=== PATIENT | female | born 1980 | race Caucasian/White ===

== ENCOUNTER 2020-02-06 17:52 | Inpatient (IN) | payer OTHER, MEDICAID ==
[~2020-02-06] VITALS: Ht 165.1 cm; Wt 64.3 kg
[2020-02-06] MEDS ORDERED: ondansetron/PF 4mg/2ml inj IV ONE ×2 (18:25→19:00)
[2020-02-06] MEDS ORDERED: normal saline 1000ML IV soln IVB ONE (18:25)
[2020-02-06 18:29] LABS: BASOPHILS # (AUTO) 0.1 X10'3 (0-0.2); BASOPHILS % (AUTO) 1.3 % (0-1); EOSINOPHILS % (AUTO) 0 % (0-6); HEMATOCRIT 38.8 % (35.0-45.0); HEMOGLOBIN 13.4 g/dl (12.0-16.0); LYMPHOCYTES # (AUTO) 0.2 X10'3 (1.1-4.8); LYMPHOCYTES % (AUTO) 2.7 % (21-51); MEAN CORPUSCULAR HEMOGLOBIN 31.2 PG (27.0-31.0); MEAN CORPUSCULAR HGB CONC 34.6 g/dL (33.0-36.5); MEAN CORPUSCULAR VOLUME 90.1 FL (78-98); MEAN PLATELET VOLUME 8.1 FL (7.4-10.4); MONOCYTES # (AUTO) 0.8 X10'3 (0-0.9); MONOCYTES % (AUTO) 8.7 % (2-12); NEUTROPHILS # (AUTO) 7.8 X10'3 (1.8-7.7); NEUTROPHILS % (AUTO) 87.3 % (42-75); PLATELET COUNT 314 X10'3 (140-440); RED BLOOD COUNT 4.31 X10'6 (4.20-5.60); RED CELL DISTRIBUTION WIDTH 15.1 % (11.5-14.5)
[2020-02-06] MEDS: morphine 4 MG/ML inj SYRINge IV PRN ×2 (18:39→20:58)
[2020-02-06 18:41] LABS: ALANINE AMINOTRANSFERASE 32 U/L (12-78); ALBUMIN 3.8 G/DL (3.4-5.0); ALBUMIN/GLOBULIN RATIO 1.1 (1.1-1.5); ALKALINE PHOSPHATASE 35 IU/L (46-116); ANION GAP 8 (8-16); ASPARTATE AMINO TRANSFERASE 42 U/L (10-37); BILIRUBIN,TOTAL 0.6 MG/DL (0.1-1.0); BLOOD UREA NITROGEN 7 MG/DL (7-18); BUN/CREATININE RATIO 8.8 (6.6-38.0); CHLORIDE 103 MMOL/L (99-107); GLUCOSE 129 MG/DL (70-104); LIPASE 91 U/L (73-393); POTASSIUM 3.4 MMOL/L (3.5-5.1); SODIUM 139 MMOL/L (135-145); TOTAL CARBON DIOXIDE 27.6 MMOL/L (24-32); TOTAL PROTEIN 7.4 G/DL (6.4-8.2); eGFR 79 ML/MIN
[2020-02-06 18:51] LABS: CLARITY,URINE CLEAR (Clear); COLOR,URINE YELLOW (Yellow); GLUCOSE, URINE NEGATIVE (Neg); KETONES,URINE 15 mg/dl (Neg); LEUKOCYTE ESTERASE ,URINE NEGATIVE (Neg); NITRITES, URINE NEGATIVE (Neg); OCCULT BLOOD,URINE TRACE-INTACT (Neg); PROTEIN,URINE 100 mg/dl (Neg); URINE HCG NEGATIVE (NEG); UROBILINOGEN,URINE 0.2 E.U/dL (0.2-1.0)
[2020-02-06 18:57] LABS: UA COLLECTION TYPE CLN CATCH MIDSTREAM
[2020-02-06] MEDS ORDERED: pantoprazole 40 MG vial IV ONE (19:00)
[2020-02-06] MEDS ORDERED: famotidine/PF 10 mg/ml inj IV ONE (19:00)
--- NOTE | 2020-02-06 19:03 | NUR ---
US TECH AT BEDSIDE.
[2020-02-06 19:05] LABS: BACTERIA,URINE NONE SEEN /HPF (Neg); MUCUS STRANDS MANY /LPF (Neg); RBC,URINE NONE SEEN /HPF (0-2); SQUAMOUS EPITHELIAL CELL,UR MODERATE /LPF (FEW); WBC,URINE 20-30 /HPF (0-4)
[2020-02-06] MEDS ORDERED: piperacillin/tazo 3.375gm/50ml 50 ML IV ONE (19:10)
--- NOTE | 2020-02-06 19:20 | NUR ---
PER DR BROWN NO BLOOD CULTURE ORDER NEEDED.
[2020-02-06] MEDS ORDERED: WARF3TAB56 PO (19:43)
[2020-02-06] MEDS ORDERED: PRE5T PO (19:43)
[2020-02-06] MEDS ORDERED: WARF1TAB83 PO (19:43)
[2020-02-06] MEDS ORDERED: HYDR200T84 PO (19:43)
[2020-02-06] MEDS ORDERED: ondansetron/PF 4mg/2ml inj IV PRN (20:40)
[2020-02-06] MEDS ORDERED: potassium CL 10mEq/100ml bag 100 ML IV PRN (20:40)
[2020-02-06] MEDS ORDERED: heparin, porcine 5000 units/ml vial SQ ONE (20:40)
[2020-02-06] MEDS ORDERED: morphine 2 MG/ML inj. syringe IV PRN (20:40)
[2020-02-06] MEDS: normal saline 1000ml 1,000 ML IV SCH (20:58)
--- NOTE | 2020-02-06 22:10 | NUR ---
Patient transferred independently to bed. VSS. Patient c/o 05/08 pain, received morphine in ER.
[2020-02-06] MEDS: morphine 2 MG/ML inj. syringe IV PRN (23:00)
[2020-02-07] VITALS: BP 115/58
[2020-02-07] MEDS: piperacillin/tazo 3.375gm/50ml 50 ML IV SCH ×4 (00:27→23:38)
[2020-02-07 05:00] LABS: BASOPHILS % (AUTO) 0.5 % (0-1); EOSINOPHILS % (AUTO) 0.4 % (0-6); HEMATOCRIT 30.8 % (35.0-45.0); HEMOGLOBIN 10.8 g/dl (12.0-16.0); LYMPHOCYTES # (AUTO) 0.5 X10'3 (1.1-4.8); LYMPHOCYTES % (AUTO) 12.2 % (21-51); MEAN CORPUSCULAR HEMOGLOBIN 31.7 PG (27.0-31.0); MEAN CORPUSCULAR HGB CONC 34.9 g/dL (33.0-36.5); MEAN CORPUSCULAR VOLUME 90.8 FL (78-98); MEAN PLATELET VOLUME 8.6 FL (7.4-10.4); MONOCYTES # (AUTO) 0.5 X10'3 (0-0.9); MONOCYTES % (AUTO) 12.1 % (2-12); NEUTROPHILS # (AUTO) 2.9 X10'3 (1.8-7.7); NEUTROPHILS % (AUTO) 74.8 % (42-75); PLATELET COUNT 222 X10'3 (140-440); RED CELL DISTRIBUTION WIDTH 15.4 % (11.5-14.5); WHITE BLOOD COUNT 3.9 X10'3 (4.5-11.0)
[2020-02-07 05:21] LABS: ALANINE AMINOTRANSFERASE 127 U/L (12-78); ALBUMIN 2.7 G/DL (3.4-5.0); ALKALINE PHOSPHATASE 34 IU/L (46-116); ANION GAP 6 (8-16); ASPARTATE AMINO TRANSFERASE 163 U/L (10-37); BILIRUBIN,TOTAL 1.3 MG/DL (0.1-1.0); BLOOD UREA NITROGEN 7 MG/DL (7-18); BUN/CREATININE RATIO 9.3 (6.6-38.0); CALCIUM 7.9 MG/DL (8.5-10.1); CHLORIDE 110 MMOL/L (99-107); CREATININE 0.75 MG/DL (0.40-0.90); GLUCOSE 92 MG/DL (70-104); POTASSIUM 3.1 MMOL/L (3.5-5.1); SODIUM 143 MMOL/L (135-145); TOTAL PROTEIN 5.5 G/DL (6.4-8.2); eGFR 85 ML/MIN
[2020-02-07] MEDS: potassium CL 10mEq/100ml bag 100 ML IV PRN ×4 (06:03→13:11)
--- NOTE | 2020-02-07 06:44 | NUR ---
Problems reprioritized. Patient report given, questions answered & plan of care reviewed with Zeenat RN.
--- NOTE | 2020-02-07 06:45 | NUR ---
Patient in room [facility]. I have received report from SOMMER Del Real and had the opportunity to ask questions and assume patient care.
[2020-02-07 07:50] VITALS: BP 109/66
[2020-02-07] MEDS: K and/or MAG REPLACEMENT MC SCH ×2 (08:00→19:48)
[2020-02-07] MEDS ORDERED: sincalide inj 1.3 MCG in normal saline 50ml IV soln 50 ML IV ONE (09:00)
--- NOTE | 2020-02-07 09:30 | NUR ---
Per Dr. Ferreira's orders, cancel HIDA scan and keep patient NPO this morning. Dr. Fagan to consult today.
[2020-02-07] MEDS: normal saline 1000ml 1,000 ML IV SCH ×2 (09:41→19:46)
[2020-02-07] MEDS: morphine 2 MG/ML inj. syringe IV PRN ×4 (09:49→23:39)
[2020-02-07] MEDS ORDERED: heparin 10,000 units/1 ML INJ IV PRN (10:05)
[2020-02-07] MEDS: heparin 25,000 UNIT/250ml bag 250 ML IV SCH ×2 (11:46→19:45)
[2020-02-07 12:06] VITALS: BP 101/56
--- NOTE | 2020-02-07 12:12 | NUR ---
Per Dr. Ferreira's order, starting Heparin drop per DVT/PE protocol, and no bolus to be given per MD order. SOMMER Benítez and SOMMER Fortune witnessed the start of the infusion pump and witnessed start of Heparin on eMAR.
[2020-02-07] MEDS ORDERED: acetaminophen 325mg tablet PO PRN (13:20)
--- NOTE | 2020-02-07 16:02 | NUR ---
Malnutrition consult: Pt seen at bedside reports UBW 135-140 lbs with 10 lb wt loss over the last month secondary to changing her dietary habits to be more healthy. Current scaled wt is 141 lb which is 100% reported UBW. Pt states she has had poor PO intake over the last two days secondary to abdominal pain and emesis. Pt currently NPO however pt states she is currently starving and with no nausea at this time. Pt with no decrease in muscle strength, edema, or visible fat/muscle wasting. Pt currently does not meet criteria for malnutrition. Pt denies food allergies or difficulty chewing/swallowing. RD contact information provided. Will continue to follow. Addendum: 02/07/20 at [address] Amended: Links added.
--- NOTE | 2020-02-07 18:36 | NUR ---
Problems reprioritized. Patient report given, questions answered & plan of care reviewed with Yu Corbin RN.
--- NOTE | 2020-02-07 19:48 | NUR ---
Pt was off heparin drip for one hour due to MRCP. Called tala to see if pt should be bolused as Rusu had declined that earlier. Kr. Pink states no bolus dose. Increased heparin to 1300 units per hour per protocol. Asked MD for diet order, patient asking to eat, no procedure schedule. MD states no diet at this time. MRCP recommendations not yet back.
[2020-02-07 20:00] VITALS: BP 105/58
[2020-02-08] VITALS (19 sets, daily range): BP systolic 97–144; BP diastolic 56–81
[2020-02-08] MEDS: morphine 2 MG/ML inj. syringe IV PRN ×3 (02:22→12:22)
[2020-02-08] MEDS: normal saline 1000ml 1,000 ML IV SCH (02:22)
[2020-02-08 02:44] LABS: BASOPHILS % (AUTO) 0.7 % (0-1); EOSINOPHILS % (AUTO) 1.5 % (0-6); HEMATOCRIT 29.4 % (35.0-45.0); HEMOGLOBIN 10.3 g/dl (12.0-16.0); LYMPHOCYTES # (AUTO) 0.4 X10'3 (1.1-4.8); LYMPHOCYTES % (AUTO) 13.5 % (21-51); MEAN CORPUSCULAR HEMOGLOBIN 32.5 PG (27.0-31.0); MEAN CORPUSCULAR HGB CONC 35.2 g/dL (33.0-36.5); MEAN CORPUSCULAR VOLUME 92.4 FL (78-98); MEAN PLATELET VOLUME 8.3 FL (7.4-10.4); MONOCYTES # (AUTO) 0.4 X10'3 (0-0.9); MONOCYTES % (AUTO) 11.1 % (2-12); NEUTROPHILS # (AUTO) 2.3 X10'3 (1.8-7.7); NEUTROPHILS % (AUTO) 73.2 % (42-75); PLATELET COUNT 182 X10'3 (140-440); RED BLOOD COUNT 3.18 X10'6 (4.20-5.60); WHITE BLOOD COUNT 3.2 X10'3 (4.5-11.0)
[2020-02-08 02:56] LABS: ALANINE AMINOTRANSFERASE 149 U/L (12-78); ALBUMIN 2.5 G/DL (3.4-5.0); ALBUMIN/GLOBULIN RATIO 0.9 (1.1-1.5); ALKALINE PHOSPHATASE 78 IU/L (46-116); ANION GAP 9 (8-16); ASPARTATE AMINO TRANSFERASE 128 U/L (10-37); BLOOD UREA NITROGEN 13 MG/DL (7-18); BUN/CREATININE RATIO 15.9 (6.6-38.0); CALCIUM 7.5 MG/DL (8.5-10.1); CHLORIDE 111 MMOL/L (99-107); CREATININE 0.82 MG/DL (0.40-0.90); GLUCOSE 65 MG/DL (70-104); POTASSIUM 3.7 MMOL/L (3.5-5.1); SODIUM 142 MMOL/L (135-145); TOTAL CARBON DIOXIDE 21.6 MMOL/L (24-32); TOTAL PROTEIN 5.2 G/DL (6.4-8.2); eGFR 77 ML/MIN
--- NOTE | 2020-02-08 06:28 | NUR ---
Problems reprioritized. Patient report given, questions answered & plan of care reviewed with SOMMER Rosenberg.
--- NOTE | 2020-02-08 06:30 | NUR ---
Patient in room [facility]. I have received report from SOMMER BROOKE and had the opportunity to ask questions and assume patient care.
[2020-02-08] MEDS ORDERED: dextrose 50%-water 50ml dispensing syringe IV PRN ×2 (07:05)
[2020-02-08] MEDS ORDERED: dextrose 50%-water 50ml dispensing syringe IV ONE (07:10)
[2020-02-08] MEDS: dextrose 5%-1/2 normal saline 1,000 ML IV SCH ×3 (07:14→20:53)
[2020-02-08] MEDS: K and/or MAG REPLACEMENT MC SCH ×2 (08:00→19:55)
[2020-02-08] MEDS: piperacillin/tazo 3.375gm/50ml 50 ML IV SCH ×2 (08:50→16:00)
[2020-02-08] MEDS: heparin 25,000 UNIT/250ml bag 250 ML IV SCH (09:15)
--- NOTE | 2020-02-08 11:24 | NUR ---
Called in to patient's room by patient's and patient's father. Patient's father expressed that he is "pissed that she hasn't eaten in 3 days. Why did you check her blood sugar? I want to see someone and tell me what's going on. The night nurse was arguing with us that she had an ERCP last night and will need the MRCP today, that she did not have a MRCP last night." Patient was educated on reasons why she had her blood sugar checked this morning, administration of dex 50% and fluid change to D5 1/2NS and MRCP results wound have to be discussed with Reinforced education to patient and patient's father that it was shown patient's BG was 65 at 0230 lab draw and I was doing a follow up BG to check to make sure patient's BG had not dropped any lower. Patient's BG was [address] Pink was notified and an order for Dex 50% IV and to changed patient's IV fluids was received. Again let patient know that she did have an MRCP and not an ERCP last night and that results would need to be discussed with DR Ferreira which he had been notified and she is to remain NPO for possibility of OR or ERCP. Patient's father then stated, " ok, well I want to see someone. Let him know to get his butt up here." Dr. Ferreira notified.
--- NOTE | 2020-02-08 12:04 | NUR ---
Patient in room [facility]. I have received report from Gretchen, Student nurse and had the opportunity to ask questions and assume patient care.
--- NOTE | 2020-02-08 12:42 | NUR ---
Dr. Ferreira in to see patient.
[2020-02-08] MEDS ORDERED: INDOCYANINE GREEN 25 MG/10 ML VIAL IV ONE (13:10)
[2020-02-08] MEDS ORDERED: morphine 2 MG/ML inj. syringe IV PRN ×2 (13:45→17:05)
[2020-02-08] MEDS ORDERED: LIDOcaine 1% 30ml preserv. free vial ONE (14:35)
[2020-02-08] MEDS ORDERED: BUPIVAcaine/PF 2.5 mg/ml (0.25%) 30ml vial ONE (14:35)
--- NOTE | 2020-02-08 15:17 | NUR ---
patient is down in OR
--- NOTE | 2020-02-08 15:48 | NUR ---
Student documentation: I have reviewed all interventions, assessments performed and documented by Kassandra ADDISON
[2020-02-08] MEDS ORDERED: midazolam 2 mg/2 ml injection ONE (16:10)
[2020-02-08] MEDS ORDERED: fentaNYL/PF 50MCG/1 ML 2ML syringe ONE (16:10)
[2020-02-08] MEDS ORDERED: AZAT50TA18 PO (16:17)
[2020-02-08] MEDS ORDERED: BELI200A SUBCUT (16:17)
[2020-02-08] MEDS ORDERED: HYDR200T80 PO (16:17)
[2020-02-08] MEDS ORDERED: ringers solution, lacted 1,000 ML IV SCH (17:01)
[2020-02-08] MEDS ORDERED: meperidine/PF 25mg/ml syringe IV PRN ×3 (17:05)
[2020-02-08] MEDS ORDERED: proCHLORperazine 10 MG/2 ml inj IV PRN (17:05)
[2020-02-08] MEDS ORDERED: ondansetron/PF 4mg/2ml inj IV PRN ×2 (17:05→18:15)
[2020-02-08] MEDS ORDERED: morphine 4 MG/ML inj SYRINge IV PRN (17:05)
[2020-02-08] MEDS ORDERED: neostigmine methylsulfate 1 MG/ML 10ml vial ONE (17:13)
[2020-02-08] MEDS ORDERED: propofol inj 20 ML IV ONE (17:13)
[2020-02-08] MEDS ORDERED: hydrocortisone sod succ/PF 100mg/2ml inj. ONE (17:13)
[2020-02-08] MEDS ORDERED: glycopyrrolate 0.2mg/ml inj ONE (17:13)
[2020-02-08] MEDS ORDERED: rocuronium 10mg/ml inj IV ONE (17:13)
[2020-02-08] MEDS ORDERED: LIDOcaine 2% (20mg/ml) 5ml vial ONE (17:13)
[2020-02-08] MEDS ORDERED: ondansetron/PF 4mg/2ml inj ONE ×2 (17:13→17:16)
--- NOTE | 2020-02-08 17:35 | NUR ---
Received from OR via , accompanied by Anesthesiologist DR NAZARIO and report given by Anesthesiolgist. AWAKENS TO VOICE. VITALS STABLE. DRESSINGS DI. ROCHELLE PAIN. ABD SOFT.
--- NOTE | 2020-02-08 17:41 | NUR ---
Problems reprioritized. Patient report given, questions answered & plan of care reviewed with Shakira Sanders.
--- NOTE | 2020-02-08 18:00 | NUR ---
Patient in room [facility]. I have received report from SOMMER Rosenberg and had the opportunity to ask questions and assume patient care.
--- NOTE | 2020-02-08 18:06 | NUR ---
Problems reprioritized. Patient report given, questions answered & plan of care reviewed with SOMMER Nicholas.
[2020-02-08] MEDS ORDERED: HYDROcodone/acetaminophen 5mg/325mg tablet PO PRN (18:15)
--- NOTE | 2020-02-08 18:35 | NUR ---
Report called to receiving nurse. Transferred via BED Belongings . Special Issues communicated to receiving nurse. AWAKE AND ORIENTED. VITALS STABLE. DRESSINGS DI. STATES PAIN IMPROVING. TO SURGICAL [facility] 340B AT THIS TIME.
--- NOTE | 2020-02-08 18:44 | NUR ---
Patient in room [facility]. I have received report from Matt, billing rep and had the opportunity to ask questions and assume patient care. Pt had lap robotic stefan under general anesthesia. Minimal blood loss, 4 laps sites with steri strips and bandaids, received 25 demerol, has been SR/SB with a HR of high 50's to low 60's, BP 118/69, A&O, eating ice chips without difficulty. Spoke to Dr. Moeller. DC heparin gtt and start lovenox 60mg daily in AM.
[2020-02-08] MEDS: morphine 10mg/ml inj. IV PRN ×3 (18:55→22:52)
[2020-02-08] MEDS: HYDROcodone/acetaminophen 10/325mg tab PO PRN (19:52)
[2020-02-09] VITALS: BP 112/62
[2020-02-09] MEDS: piperacillin/tazo 3.375gm/50ml 50 ML IV SCH ×4 (00:05→23:39)
[2020-02-09] MEDS: HYDROcodone/acetaminophen 10/325mg tab PO PRN ×5 (00:10→21:13)
[2020-02-09] MEDS: morphine 10mg/ml inj. IV PRN ×2 (02:55→07:33)
[2020-02-09 04:00] VITALS: BP 91/50
[2020-02-09 05:40] LABS: BASOPHILS % (AUTO) 0.5 % (0-1); EOSINOPHILS % (AUTO) 0.2 % (0-6); HEMATOCRIT 28.2 % (35.0-45.0); LYMPHOCYTES # (AUTO) 0.4 X10'3 (1.1-4.8); LYMPHOCYTES % (AUTO) 12.5 % (21-51); MEAN CORPUSCULAR HEMOGLOBIN 32.6 PG (27.0-31.0); MEAN CORPUSCULAR HGB CONC 35.4 g/dL (33.0-36.5); MEAN PLATELET VOLUME 8.9 FL (7.4-10.4); MONOCYTES # (AUTO) 0.3 X10'3 (0-0.9); MONOCYTES % (AUTO) 9.2 % (2-12); NEUTROPHILS # (AUTO) 2.2 X10'3 (1.8-7.7); NEUTROPHILS % (AUTO) 77.6 % (42-75); PLATELET COUNT 186 X10'3 (140-440); RED BLOOD COUNT 3.07 X10'6 (4.20-5.60); WHITE BLOOD COUNT 2.8 X10'3 (4.5-11.0)
[2020-02-09 05:59] LABS: ALANINE AMINOTRANSFERASE 139 U/L (12-78); ALBUMIN 2.3 G/DL (3.4-5.0); ALBUMIN/GLOBULIN RATIO 0.8 (1.1-1.5); ALKALINE PHOSPHATASE 86 IU/L (46-116); ANION GAP 6 (8-16); ASPARTATE AMINO TRANSFERASE 72 U/L (10-37); BILIRUBIN,TOTAL 0.5 MG/DL (0.1-1.0); BLOOD UREA NITROGEN 4 MG/DL (7-18); BUN/CREATININE RATIO 5.7 (6.6-38.0); CALCIUM 8.2 MG/DL (8.5-10.1); CHLORIDE 109 MMOL/L (99-107); GLUCOSE 152 MG/DL (70-104); POTASSIUM 3.6 MMOL/L (3.5-5.1); SODIUM 140 MMOL/L (135-145); TOTAL CARBON DIOXIDE 25.1 MMOL/L (24-32); TOTAL PROTEIN 5.2 G/DL (6.4-8.2); eGFR > 90 ML/MIN
--- NOTE | 2020-02-09 06:48 | NUR ---
Problems reprioritized. Patient report given, questions answered & plan of care reviewed with SOMMER Mccall.
--- NOTE | 2020-02-09 06:59 | NUR ---
Patient in room [facility]. I have received report from Yu NOVOA and had the opportunity to ask questions and assume patient care.
[2020-02-09 07:16] VITALS: BP 95/49
[2020-02-09 07:30] LABS: TOTAL CELLS COUNTED 100
[2020-02-09 07:37] LABS: ELLIPTOCYTES FEW; PLATELET ESTIMATE NORMAL
[2020-02-09] MEDS: enoxaparin 60mg/0.6ml syringe SUBCUT SCH ×2 (07:47→21:13)
[2020-02-09] MEDS: dextrose 5%-1/2 normal saline 1,000 ML IV SCH (07:48)
[2020-02-09] MEDS: K and/or MAG REPLACEMENT MC SCH ×2 (08:00→18:44)
[2020-02-09] MEDS ORDERED: enoxaparin 60mg/0.6ml syringe SUBCUT SCH (08:00)
[2020-02-09 13:15] VITALS: BP 96/49
[2020-02-09] MEDS: morphine 2 MG/ML inj. syringe IV PRN ×3 (14:09→23:50)
[2020-02-09 18:15] VITALS: BP 128/68
--- NOTE | 2020-02-09 18:24 | NUR ---
Patient in room [facility]. I have received report from SOMMER Mccall and had the opportunity to ask questions and assume patient care.
--- NOTE | 2020-02-09 18:39 | NUR ---
Problems reprioritized. Patient report given, questions answered & plan of care reviewed with Lynette NOVOA.
[2020-02-10] VITALS: BP 94/47
[2020-02-10 06:08] LABS: BASOPHILS % (AUTO) 0.9 % (0-1); EOSINOPHILS # (AUTO) 0.1 X10'3 (0-0.9); EOSINOPHILS % (AUTO) 2.8 % (0-6); HEMATOCRIT 27.6 % (35.0-45.0); HEMOGLOBIN 9.7 g/dl (12.0-16.0); LYMPHOCYTES # (AUTO) 0.4 X10'3 (1.1-4.8); LYMPHOCYTES % (AUTO) 18.3 % (21-51); MEAN CORPUSCULAR HEMOGLOBIN 32.1 PG (27.0-31.0); MEAN CORPUSCULAR HGB CONC 35.1 g/dL (33.0-36.5); MEAN CORPUSCULAR VOLUME 91.5 FL (78-98); MEAN PLATELET VOLUME 9.1 FL (7.4-10.4); MONOCYTES # (AUTO) 0.4 X10'3 (0-0.9); MONOCYTES % (AUTO) 14.5 % (2-12); NEUTROPHILS # (AUTO) 1.5 X10'3 (1.8-7.7); NEUTROPHILS % (AUTO) 63.5 % (42-75); PLATELET COUNT 183 X10'3 (140-440); RED BLOOD COUNT 3.02 X10'6 (4.20-5.60); RED CELL DISTRIBUTION WIDTH 15.1 % (11.5-14.5); WHITE BLOOD COUNT 2.4 X10'3 (4.5-11.0)
--- NOTE | 2020-02-10 06:23 | NUR ---
Problems reprioritized. Patient report given, questions answered & plan of care reviewed with SOMMER Rodriguez.
[2020-02-10 06:24] LABS: ALANINE AMINOTRANSFERASE 98 U/L (12-78); ALBUMIN 2.2 G/DL (3.4-5.0); ALBUMIN/GLOBULIN RATIO 0.8 (1.1-1.5); ALKALINE PHOSPHATASE 68 IU/L (46-116); ANION GAP 7 (8-16); ASPARTATE AMINO TRANSFERASE 33 U/L (10-37); BILIRUBIN,TOTAL 0.4 MG/DL (0.1-1.0); BLOOD UREA NITROGEN 4 MG/DL (7-18); BUN/CREATININE RATIO 5.3 (6.6-38.0); CALCIUM 7.9 MG/DL (8.5-10.1); CHLORIDE 109 MMOL/L (99-107); CREATININE 0.75 MG/DL (0.40-0.90); GLUCOSE 80 MG/DL (70-104); POTASSIUM 3.8 MMOL/L (3.5-5.1); SODIUM 145 MMOL/L (135-145); TOTAL CARBON DIOXIDE 28.6 MMOL/L (24-32); eGFR 85 ML/MIN
[2020-02-10 06:56] LABS: ANISOCYTOSIS 1+; PLATELET ESTIMATE NORMAL; TOTAL CELLS COUNTED 100
[2020-02-10] MEDS: K and/or MAG REPLACEMENT MC SCH ×2 (06:56→20:00)
[2020-02-10 07:16] VITALS: BP 125/70
[2020-02-10] MEDS: HYDROcodone/acetaminophen 10/325mg tab PO PRN ×4 (07:46→21:57)
[2020-02-10] MEDS: piperacillin/tazo 3.375gm/50ml 50 ML IV SCH (07:46)
[2020-02-10] MEDS: enoxaparin 60mg/0.6ml syringe SUBCUT SCH (07:47)
[2020-02-10 11:00] VITALS: BP 107/55
--- NOTE | 2020-02-10 17:00 | NUR ---
NOTIFIED DR SANTOYO RE PT DISTENDED AND PAINFUL. RECD ORDER FOR RELISTOR, REGLAN, AND DULCOLAX SUPP. WILL NOTIFY DR LAMBERT.
[2020-02-10] MEDS ORDERED: methylnaltrexone br 12mg/0.6ml inj***SubQ only SQ ONE (17:10)
--- NOTE | 2020-02-10 17:15 | NUR ---
SPOKE WITH DR LAMBERT RE PT BEING DISTENDED AND PAINFUL . NOTIFIED HIM OF ORDERS RECD BY DR SANTOYO. HE AGREES TO RELISTOR BUT WANTS TO HOLD OFF ON GIVING REGLAN AND DULCOLAX SUPP AT THIS TIME.
[2020-02-10 18:00] VITALS: BP 138/60
--- NOTE | 2020-02-10 18:36 | NUR ---
Problems reprioritized. Patient report given, questions answered & plan of care reviewed with joann becerra.
--- NOTE | 2020-02-10 18:42 | NUR ---
Patient in room [facility]. I have received report from SOMMER Rodriguez and had the opportunity to ask questions and assume patient care.
[2020-02-10] MEDS: hydroxychloroquine 200mg tablet PO SCH (20:00)
[2020-02-10] MEDS ORDERED: warfarin 1mg tablet PO SCH (21:00)
[2020-02-10] MEDS ORDERED: warfarin 3mg tablet PO SCH (21:00)
[2020-02-11] VITALS: BP 119/62
[2020-02-11] MEDS ORDERED: fluconazole 100mg tablet PO ONE (01:05)
[2020-02-11] MEDS: enoxaparin 60mg/0.6ml syringe SUBCUT SCH ×2 (01:42→08:00)
[2020-02-11] MEDS: HYDROcodone/acetaminophen 10/325mg tab PO PRN ×2 (01:50→08:22)
[2020-02-11 06:08] LABS: BASOPHILS % (AUTO) 1.2 % (0-1); EOSINOPHILS # (AUTO) 0.1 X10'3 (0-0.9); EOSINOPHILS % (AUTO) 4.4 % (0-6); HEMATOCRIT 26.8 % (35.0-45.0); HEMOGLOBIN 9.5 g/dl (12.0-16.0); LYMPHOCYTES # (AUTO) 0.4 X10'3 (1.1-4.8); LYMPHOCYTES % (AUTO) 25.5 % (21-51); MEAN CORPUSCULAR HEMOGLOBIN 32.5 PG (27.0-31.0); MEAN CORPUSCULAR HGB CONC 35.6 g/dL (33.0-36.5); MEAN CORPUSCULAR VOLUME 91.3 FL (78-98); MEAN PLATELET VOLUME 8.9 FL (7.4-10.4); MONOCYTES # (AUTO) 0.3 X10'3 (0-0.9); MONOCYTES % (AUTO) 18.1 % (2-12); NEUTROPHILS # (AUTO) 0.8 X10'3 (1.8-7.7); NEUTROPHILS % (AUTO) 50.8 % (42-75); PLATELET COUNT 187 X10'3 (140-440); RED BLOOD COUNT 2.94 X10'6 (4.20-5.60); WHITE BLOOD COUNT 1.6 X10'3 (4.5-11.0)
[2020-02-11 06:36] LABS: ALANINE AMINOTRANSFERASE 89 U/L (12-78); ALBUMIN 2.2 G/DL (3.4-5.0); ALBUMIN/GLOBULIN RATIO 0.7 (1.1-1.5); ALKALINE PHOSPHATASE 68 IU/L (46-116); ANION GAP 6 (8-16); ASPARTATE AMINO TRANSFERASE 42 U/L (10-37); BILIRUBIN,TOTAL 0.5 MG/DL (0.1-1.0); BLOOD UREA NITROGEN 2 MG/DL (7-18); BUN/CREATININE RATIO 3.2 (6.6-38.0); CALCIUM 8.2 MG/DL (8.5-10.1); CHLORIDE 111 MMOL/L (99-107); CREATININE 0.63 MG/DL (0.40-0.90); GLUCOSE 81 MG/DL (70-104); POTASSIUM 3.7 MMOL/L (3.5-5.1); SODIUM 145 MMOL/L (135-145); TOTAL CARBON DIOXIDE 28.1 MMOL/L (24-32); TOTAL PROTEIN 5.2 G/DL (6.4-8.2); eGFR > 90 ML/MIN
--- NOTE | 2020-02-11 06:52 | NUR ---
Patient in room [facility]. I have received report from joann NOVOA and had the opportunity to ask questions and assume patient care.
--- NOTE | 2020-02-11 06:54 | NUR ---
Problems reprioritized. Patient report given, questions answered & plan of care reviewed with SOMMER Maldonado.
[2020-02-11 07:28] VITALS: BP 114/66
[2020-02-11 07:37] LABS: PLATELET ESTIMATE NORMAL; TOTAL CELLS COUNTED 100
[2020-02-11 07:38] LABS: ELLIPTOCYTES FEW
[2020-02-11] MEDS: K and/or MAG REPLACEMENT MC SCH (08:00)
[2020-02-11] MEDS: hydroxychloroquine 200mg tablet PO SCH (08:15)
[2020-02-11] MEDS ORDERED: predniSONE 5mg tablet PO SCH (08:30)
[2020-02-11] MEDS ORDERED: ENOX60DI10 SUBCUT (08:56)
[2020-02-11] MEDS ORDERED: HYDR-4353 PO (08:56)
--- NOTE | 2020-02-11 12:22 | NUR ---
patient seen by Dr Ferreira is for Discharge. Surgical clearance obtained from Dr Manriquez for DC. All DC instructions given to patient . Prescription for Carnation given to patient, other meds sent to [facility] on [address]. patient appears stable for DC. DC home with son via private car to home 1130hrs.
[2020-02-12] MEDS ORDERED: warfarin 3mg tablet PO SCH (21:00)
== END 2020-02-11 11:36 | disposition home or self-care (01) | DRG 417 ==
LOC: ER 17:53 → ED HOLD 20:40 → UNDOADMIN 20:44 → ED HOLD 22:10 → SUR 3N 22:10
PROVIDERS: ADMIT Internal Medicine; ATTEND Internal Medicine
PROC: BF121ZZ Fluoroscopy of Gallbladder using Low Osmolar Contrast (ICD-10-PCS; 2020-02-08)
PROC: 8E0W4CZ Robotic Assisted Procedure of Trunk Region, Percutaneous Endoscopic Approach (ICD-10-PCS; 2020-02-08)
PROC: 0FT44ZZ Resection of Gallbladder, Percutaneous Endoscopic Approach (ICD-10-PCS; principal; 2020-02-08 16:07)
DX: K80.00 Calculus of gallbladder with acute cholecystitis without obstruction (principal); K85.90 Acute pancreatitis without necrosis or infection, unspecified; K56.7 Ileus, unspecified; E87.6 Hypokalemia; D64.9 Anemia, unspecified; M32.9 Systemic lupus erythematosus, unspecified; Z79.01 Long term (current) use of anticoagulants; Z79.899 Other long term (current) drug therapy; Z86.711 Personal history of pulmonary embolism; Z86.718 Personal history of other venous thrombosis and embolism
CPT/HCPCS: 96361; 96365; 96375; 96376; 99285; Z7506; Z7508; 36415; 74181; 76700; 80053; 81001; 81025; 82948; 83605; 83690; 85025; 85610; 85730; 87081; 87088; A4215; A4618; A7000; C9113; G0378; J1644; J1650; J1720; J2001; J2175; J2212; J2250; J2270; J2405; J2543; J2704; J2710; J3010; J3480; J3490; J7030; J7120; J7500; J7512